=== PATIENT | female | born 1975 | race African-American/Black ===

== ENCOUNTER 2021-02-22 11:31 | Emergency (ER) | payer OTHER, SELFPAY ==
[2021-02-22 11:37] VITALS: BP 150/104; PULSE 98; RESP 16; TEMP 36.7; O2SAT 98; BMI 24.4
--- NOTE | 2021-02-22 11:40 | DI.US.S_ITS ---
PROCEDURE: US ABDOMEN LIMITED INDICATIONS: RUQ PAIN TECHNIQUE: Real-time scanning was performed of the abdominal and retroperitoneal organs, with image documentation. COMPARISON: None. FINDINGS: Liver: Liver is normal in size and homogeneous in echotexture. Gallbladder: Absent, and presumed resected. Biliary ducts: Intrahepatic bile ducts are non-dilated. Extrahepatic bile duct caliber measures 7 mm. Normal is 6-7 mm or less in diameter, or 10 mm or less post-cholecystectomy. Pancreas: Visualized portions of the pancreas are sonographically normal. IMPRESSION: Gallbladder is not visualized and presumed surgically resected. Dictated by: Jeff Osborn M.D. on 02/22/2021 at 12:11 Approved by: Jeff Osborn M.D. on 02/22/2021 at 12:12
--- NOTE | 2021-02-22 11:44 | ED.GENADULT ---
HPI - General Adult General Chief complaint: Abdominal Pain Stated complaint: Stomach pain/vomitting. x2 days Time Seen by Provider: 02/22/21 11:38 Source: patient Mode of arrival: Family Vehicle History of Present Illness HPI narrative: Patient is a 45-year-old female here for evaluation of 2 days of right upper/midline abdominal discomfort. Has had some vomiting. States the symptoms worsen after she eats. No fevers. She has had gallstones in the past that had been removed but she still has her gallbladder. No urinary symptoms. Was recently diagnosed with zoster but that was in a different location. No fevers. Has been taking [place] at home which does seem to help the discomfort somewhat. No diarrhea. Related Data Previous Rx's Medication Instructions Recorded esomeprazole magnesium 20 mg 20 mg PO DAILY #21 cap 02/22/21 capsule,delayed release ondansetron 4 mg disintegrating 4 mg PO Q6H PRN #14 tab 02/22/21 tablet Allergies Allergy/AdvReac Type Severity Reaction Status Date / Time No Known Drug Allergies Allergy Verified 02/22/21 11:41 Review of Systems Constitutional Constitutional: Denies fever(s) Cardiovascular Cardiovascular: Denies chest pain and Denies dyspnea Respiratory Respiratory: Denies dyspnea Gastrointestinal Gastrointestinal: Reports as per HPI Genitourinary Genitourinary: Denies dysuria Musculoskeletal Musculoskeletal: Denies back pain Integumentary/Breasts Skin/Breast: Reports system reviewed and no additional complaints, except as documented Neurologic Neurologic: Reports system reviewed and no additional complaints, except as documented Psychiatric Psychiatric: Reports system reviewed and no additional complaints, except as documented Hematologic/Lymphatic On Anticoagulants: No Allergic/Immunologic Allergic/Immunologic: Reports system reviewed and no additional complaints, except as documented Patient History Medical History Gallstones Hypertension Social History Smoking Status: Former smoker Smoking Status: Former smoker alcohol intake frequency: a few times a month Substance Use Type: other Exam Initial Vital Signs Initial Vital Signs: Vital Signs Temperature 98.0 F 02/22/21 11:37 Pulse Rate 98 H 02/22/21 11:37 Respiratory Rate 16 02/22/21 11:37 Blood Pressure 150/104 H 02/22/21 11:37 Pulse Oximetry 98 02/22/21 11:37 Const General: cooperative and comfortable HENMT Head: normal to inspection and normocephalic Resp Effort & Inspection: normal respiratory effort Auscultation: clear to auscultation bilaterally Cardio Rate: regular rate Rhythm: regular rhythm GI Palpation: soft and tender (Right upper quadrant) Back/Spine/Pelvis Back: No CVA tenderness Skin General: no rashes or lesions noted Neuro General: patient alert, patient awake, patient oriented x3 and moves all extremities Extrem General: normal to inspection and capillary refill normal Psych Appearance: grossly normal and well kempt Course Orders Ordered: ED Orders 02/22/21 11:40 US abdomen limited Stat 02/22/21 11:45 Complete Blood Count AUTO DIFF Stat Comprehensive Metabolic Panel Stat Lipase Stat Test Serum,Qual Stat 02/22/21 13:02 CT abdomen pelvis w con Stat Discontinued Medications Sodium Chloride (Normal Saline 0.9%) 1,000 mls @ 1,000 mls/hr IV BOLUS ONE Stop: 02/22/21 12:37 Last Admin: 02/22/21 11:52 Dose: 1,000 mls/hr Documented by: DONNY Morphine Sulfate (Morphine 4 Mg/Ml Inj) 4 mg IV NOW ONE Stop: 02/22/21 11:45 Last Admin: 02/22/21 11:52 Dose: 4 mg Documented by: DONNY Ondansetron HCl (Ondansetron 4 Mg/2 Ml Inj) 4 mg IV NOW ONE Stop: 02/22/21 11:45 Last Admin: 02/22/21 11:52 Dose: 4 mg Documented by: DONNY Vital Signs Vital signs: Vital Signs - 8 hr 02/22/21 11:37 Temperature 98.0 F Pulse Rate 98 H Respiratory Rate 16 Blood Pressure 150/104 H Pulse Oximetry 98 Medical Decision Making Lab Data Lab results reviewed: Yes I reviewed the patient's lab results. Result diagrams: 02/22/21 11:45 02/22/21 11:45 Labs: Lab Results 02/22/21 02/22/21 02/22/21 Range/Units 11:45 11:45 11:45 WBC 4.9 (4.5-11.0) X10^3/uL RBC 4.47 (4.0-5.2) X10^6/uL Hgb 13.6 (12.0-16.0) g/dL Hct 39.0 (36-46) % MCV 87.2 (80-100) fL MCH 30.5 (26-34) PG MCHC 34.9 (30-36) % RDW 13.4 (11.6-14.8) % Plt Count 267 (150-400) X10^3/uL Neut % (Auto) 63.5 (50-75) % Lymph % (Auto) 22.8 L (25-40) % [place] % (Auto) 11.0 (3-14) % Eos % (Auto) 2.3 (2-4) % Baso % (Auto) 0.4 (0-2) % Neut # (Auto) 3100 (3763-7831) /uL Lymph # (Auto) 1100 (3838-2351) /uL [place] # (Auto) 500 (0-900) /uL Eos # (Auto) 100 (0-450) /uL Baso # (Auto) 0 (0-100) /uL Sodium 135 L (137-145) mmol/L Potassium 4.8 (3.4-5.1) mmol/L Chloride 99 (98-107) mmol/L Carbon Dioxide 27 (22-32) mmol/L BUN 21 H (7-17) mg/dL Creatinine 1.23 H (0.52-1.04) mg/dL Estimated GFR 47.4 L (>60) mL/min BUN/Creatinine Ratio 17.1 (6-22) Glucose 102 H (70-100) mg/dL Calcium 9.8 (8.4-10.2) mg/dL Total Bilirubin 1.4 H (0.2-1.3) mg/dL AST 37 H (14-36) IU/L ALT 24 (<35) IU/L Alkaline Phosphatase 63 (38-126) U/L Total Protein 8.8 H (6.3-8.2) g/dL Albumin 4.8 (3.5-5.0) g/dL Globulin 4.0 (1.7-4.1) g/dL Albumin/Globulin Ratio 1.2 (1.0-2.8) Lipase 172 (23-300) U/L Serum , Qual Negative (Negative) Imaging Data US - abdomen: Radiologist's Impression: [address] [place] [id number] ReportSigned Patient: Christina Mondragon [facility]#: [id number]: 1975Acct:[id number]/Sex: 45 / FDate of Service: 02/22/21Lo: EDAccession Number: [id number] Procedure: US abdomen limited Ordering Provider: Ben Ha D.O. PROCEDURE: US ABDOMEN LIMITED INDICATIONS: RUQ PAIN TECHNIQUE: Real-time scanning was performed of the abdominal and retroperitoneal organs, with image documentation. COMPARISON: None. FINDINGS: Liver: Liver is normal in size and homogeneous in echotexture. Gallbladder: Absent, and presumed resected. Biliary ducts: Intrahepatic bile ducts are non-dilated. Extrahepatic bile duct caliber measures 7 mm. Normal is 6-7 mm or less in diameter, or 10 mm or less post-cholecystectomy. Pancreas: Visualized portions of the pancreas are sonographically normal. IMPRESSION: Gallbladder is not visualized and presumed surgically resected. Dictated by: Jeff Osborn M.D. on 02/22/2021 at 12:11 Approved by: Jeff Osborn M.D. on 02/22/2021 at 12:12 CT scan - abdomen/pelvis: Radiologist's Impression: [address] [id number] Scan ReportSigned Patient: Christina Mondragon [facility]#: [id number]: 1975Acct:[id number]/Sex: 45 / FDate of Service: 02/22/21Loc: EDAccession Number: [id number] Procedure: CT abdomen pelvis w con Ordering Provider: Ben Ha D.O. PROCEDURE: CT ABDOMEN PELVIS W CON INDICATIONS: Generalized abdominal pain TECHNIQUE: After the administration of intravenous contrast, axial sections acquired from the lung bases to the pubic symphysis. Coronal and sagittal reformats were performed. For radiation dose reduction, the following was used: automated exposure control, adjustment of mA and/or kV according to patient size. COMPARISON: [facility], US ABDOMEN LIMITED, 02/22/2021, 12:53. FINDINGS: Lower thorax: Moderate peripheral chronic appearing atelectasis and or infiltrate with incidental 5 mm nodule in the right and left costophrenic sulcus. Additional 6 mm nodule is noted in the periphery of the right lower lobe, and 3 mm nodule in the periphery of the left lower lobe as well. Moderate hiatal hernia present. Liver: Focal fatty infiltration noted adjacent to the falciform ligament. Remainder of the hepatic parenchyma unremarkable. Biliary system: Gallbladder is absent, and presumed surgically resected. No intra or extrahepatic bile duct dilatation. Pancreas: Unremarkable without mass or inflammation evident. Spleen: Normal in size and density. Adrenals: Normal morphology and density. Reproductive system: Unremarkable as visualized. Urinary system: There is a cystic lesion arising from the left kidney measuring overall 4.0 x 3.4 by 3.1 cm which appears all multilocular with several internal irregular septae. Additional 1.8 cm left renal and smaller subcentimeter simple appearing cysts present. No hydronephrosis. Right kidney unremarkable. Gastrointestinal system: The bowel appears unremarkable with no evidence of bowel obstruction or inflammation. The stomach appears unremarkable. Appendix: Normal appendix identified. No evidence of appendicitis. Peritoneal spaces: No mesenteric or retroperitoneal adenopathy. No free air. No free fluid. Vasculature: The IVC, aorta and iliac vasculature are unremarkable. Musculoskeletal: Normal bone mineralization. No acute fractures. Abdominal wall intact without evidence of ventral or inguinal hernias. IMPRESSION: 1. Moderate hiatal hernia 2. Chronic reticular density noted at both lung bases may be sequelae of chronic pulmonary infiltrates. There are bibasilar small subcentimeter nodules, largest is 6 mm in the right lower lobe. Consider follow-up dedicated CT chest in 3- 6 months 3. Multi cystic complex left renal cortical lesion. Consider follow-up dedicated contrast MRI to evaluate for cystic neoplasm. 4. Presumed cholecystectomy Dictated by: Jeff Osborn M.D. on 02/22/2021 at 13:26 Approved by: Jeff Osborn M.D. on 02/22/2021 at 13:46 [facility] Narrative Medical decision making narrative: Patient's ultrasound does show that she has had her gallbladder removed. Has show no other etiology for her symptoms. The CT scan showed no acute pathology. I did discuss with her the incidental findings of the lung nodules. She is afebrile. Her labs unremarkable. No indication for antibiotics. No indication for surgical consultation. I feel that we can hold on further workup for now. Unsure the exact etiology however we will start her on a PPI as this potentially is a ulcer and given her vomiting. She was given strict return precautions and follow-up instructions. She expressed understanding and agreement. Discharge Plan Departure Patient Disposition: Home Clinical Impression: Abdominal pain, Lung nodule Instructions: DI for Abdominal Pain-Adult Activity Restrictions/Additional Instructions: I do recommend that you start taking the medications as directed. Continue the rest of your medications as already directed. Recommend you contact your primary doctor to discuss the incidental findings of the lung nodules on the CT scan today. I also recommend that you contact your primary doctor so that she can follow-up your abdominal pain especially if your symptoms do not improve as you may need referral to see Gastroenterology. Prescriptions: New ondansetron 4 mg tablet,disintegrating 4 mg PO Q6H PRN (Reason: nausea and vomiting) Qty: 14 RF: 0 esomeprazole magnesium 20 mg capsule,delayed release(DR/EC) 20 mg PO DAILY Qty: 21 RF: 0
[2021-02-22] MEDS: ONDANSETRON 4 MG/2 ML INJ IV (11:52)
[2021-02-22] MEDS: SODIUM CHLORIDE 0.9% 1,000 ML 1000 ML IV (11:52)
[2021-02-22] MEDS: MORPHINE 4 MG/ML INJ IV (11:52)
[2021-02-22 11:57] LABS: Add Manual Diff / Slide Review NO; Basophils Absolute Auto 0 /uL (0-100); Basophils Percent Auto 0.4 % (0-2); Eosinophils Absolute Auto 100 /uL (0-450); Eosinophils Percent Auto 2.3 % (2-4); Hemoglobin 13.6 g/dL (12.0-16.0); Lymphocytes Absolute Auto 1100 /uL (1100-4500); Lymphocytes Percent Auto 22.8 % (25-40); Mean Corpuscular HGB Conc 34.9 % (30-36); Mean Corpuscular Hemoglobin 30.5 PG (26-34); Mean Corpuscular Volume 87.2 fL (80-100); Monocytes Absolute Auto 500 /uL (0-900); Neutrophils Absolute Auto 3100 /uL (1500-7000); Neutrophils Percent Auto 63.5 % (50-75); Platelet Count 267 X10^3/uL (150-400); Red Blood Cell Count 4.47 X10^6/uL (4.0-5.2); Red Cell Distribution Width 13.4 % (11.6-14.8); White Blood Cell Count 4.9 X10^3/uL (4.5-11.0)
[2021-02-22 12:03] LABS: Pregnancy Test Serum,Qual Negative (Negative)
[2021-02-22 12:06] LABS: Alanine Aminotransferase 24 IU/L (<35); Albumin 4.8 g/dL (3.5-5.0); Albumin Globulin Ratio 1.2 (1.0-2.8); Alkaline Phosphatase 63 U/L (38-126); Aspartate Aminotransferase 37 IU/L (14-36); BUN Creatinine Ratio 17.1 (6-22); Bilirubin Total 1.4 mg/dL (0.2-1.3); Blood Urea Nitrogen 21 mg/dL (7-17); Calcium 9.8 mg/dL (8.4-10.2); Carbon Dioxide 27 mmol/L (22-32); Chloride 99 mmol/L (98-107); Estimated Glomerular Filt Rate 47.4 mL/min (>60); Glucose 102 mg/dL (70-100); HEMOLYSIS < 15 (0-50); Lipase 172 U/L (23-300); Potassium 4.8 mmol/L (3.4-5.1); Sodium 135 mmol/L (137-145); Total Protein 8.8 g/dL (6.3-8.2)
--- NOTE | 2021-02-22 13:02 | DI.CT.S_ITS ---
PROCEDURE: CT ABDOMEN PELVIS W CON INDICATIONS: Generalized abdominal pain TECHNIQUE: After the administration of intravenous contrast, axial sections acquired from the lung bases to the pubic symphysis. Coronal and sagittal reformats were performed. For radiation dose reduction, the following was used: automated exposure control, adjustment of mA and/or kV according to patient size. COMPARISON: [facility], , US ABDOMEN LIMITED, 02/22/2021, 12:53. FINDINGS: Lower thorax: Moderate peripheral chronic appearing atelectasis and or infiltrate with incidental 5 mm nodule in the right and left costophrenic sulcus. Additional 6 mm nodule is noted in the periphery of the right lower lobe, and 3 mm nodule in the periphery of the left lower lobe as well. Moderate hiatal hernia present. Liver: Focal fatty infiltration noted adjacent to the falciform ligament. Remainder of the hepatic parenchyma unremarkable. Biliary system: Gallbladder is absent, and presumed surgically resected. No intra or extrahepatic bile duct dilatation. Pancreas: Unremarkable without mass or inflammation evident. Spleen: Normal in size and density. Adrenals: Normal morphology and density. Reproductive system: Unremarkable as visualized. Urinary system: There is a cystic lesion arising from the left kidney measuring overall 4.0 x 3.4 by 3.1 cm which appears all multilocular with several internal irregular septae. Additional 1.8 cm left renal and smaller subcentimeter simple appearing cysts present. No hydronephrosis. Right kidney unremarkable. Gastrointestinal system: The bowel appears unremarkable with no evidence of bowel obstruction or inflammation. The stomach appears unremarkable. Appendix: Normal appendix identified. No evidence of appendicitis. Peritoneal spaces: No mesenteric or retroperitoneal adenopathy. No free air. No free fluid. Vasculature: The IVC, aorta and iliac vasculature are unremarkable. Musculoskeletal: Normal bone mineralization. No acute fractures. Abdominal wall intact without evidence of ventral or inguinal hernias. IMPRESSION: 1. Moderate hiatal hernia 2. Chronic reticular density noted at both lung bases may be sequelae of chronic pulmonary infiltrates. There are bibasilar small subcentimeter nodules, largest is 6 mm in the right lower lobe. Consider follow-up dedicated CT chest in 3- 6 months 3. Multi cystic complex left renal cortical lesion. Consider follow-up dedicated contrast MRI to evaluate for cystic neoplasm. 4. Presumed cholecystectomy Dictated by: Jeff Osborn M.D. on 02/22/2021 at 13:26 Approved by: Jeff Osborn M.D. on 02/22/2021 at 13:46
[2021-02-22 14:18] VITALS: PULSE 86; RESP 14; O2SAT 99
[2021-02-22 14:30] VITALS: BP 99/56; PULSE 86; RESP 18; O2SAT 97
[2021-02-22 15:00] VITALS: BP 101/59; PULSE 84; RESP 14; O2SAT 100
== END 2021-02-22 15:37 | disposition home or self-care (01) ==
PROVIDERS: Emergency Provider Emergency Medicine
DX: R10.11 Right upper quadrant pain (principal); R91.1 Solitary pulmonary nodule; R11.10 Vomiting, unspecified
CPT/HCPCS: 36415; 74177; 76705; 80053; 83690; 84703; 85025; 96361; 96374; 96375; 99284; J2270; J2405; Q9967